=== PATIENT | male | born 1985 | race Two or more races ===

== ENCOUNTER 2018-05-15 09:32 | Emergency (ER) | payer OTHER ==
[~2018-05-15] VITALS: Ht 172.7 cm; Wt 104.3 kg
== END 2018-05-15 16:18 | disposition home or self-care (01) ==
LOC: ER 09:32 → EDBD 09:32 → ER 09:48
DX: N20.1 Calculus of ureter (principal); N20.0 Calculus of kidney

== ENCOUNTER 2020-02-22 01:44 | Emergency (ER) | payer OTHER ==
[~2020-02-22] VITALS: Ht 175.3 cm; Wt 108.9 kg
[2020-02-22] MEDS ORDERED: KETO10TA2 PO (06:51)
[2020-02-22] MEDS ORDERED: TAMS0.4C PO (06:51)
== END 2020-02-22 07:53 | disposition home or self-care (01) ==
LOC: ER 01:44
DX: N20.1 Calculus of ureter (principal); R10.31 Right lower quadrant pain

== ENCOUNTER 2020-05-03 00:11 | Emergency (ER) | payer OTHER ==
[~2020-05-03] VITALS: Ht 170.2 cm; Wt 111.1 kg
[~2020-05-03 00:11] MED LIST: KETO10TA2 PO; TAMS0.4C PO
[2020-05-30] MEDS ORDERED: TAMS0.4C PO (16:23)
[2020-05-30] MEDS ORDERED: KETOROLAC TROME10 MG PO (16:29)
== END 2020-05-03 08:28 | disposition home or self-care (01) ==
LOC: ER 00:11
DX: N20.1 Calculus of ureter (principal); R10.31 Right lower quadrant pain

== ENCOUNTER → 2020-05-23 | Outpatient (CLI) | payer OTHER ==
[~2020-05-23] MED LIST changes: +KETOROLAC TROME10 MG PO
== END | disposition home or self-care (01) ==
LOC: RAD 12:05
PROVIDERS: ATTEND Urology
DX: N20.1 Calculus of ureter (principal)

== ENCOUNTER 2020-06-01 05:55 | Day surgery (SDC) | payer OTHER | END 2020-06-01 13:05 | disposition home or self-care (01) | LOC: CIR.AMB 05:55 | PROVIDERS: ATTEND Urology | DX: N20.1 Calculus of ureter (principal) ==

== ENCOUNTER 2020-06-09 11:47 | Outpatient (CLI) | payer OTHER | END 2020-06-09 11:48 | disposition home or self-care (01) | LOC: RAD 11:47 | PROVIDERS: ATTEND Urology | DX: N20.1 Calculus of ureter (principal) ==

== ENCOUNTER 2020-06-27 06:35 | Day surgery (SDC) | payer OTHER | END 2020-06-27 14:33 | disposition home or self-care (01) | LOC: CIR.AMB 06:35 | PROVIDERS: ATTEND Urology | DX: N20.0 Calculus of kidney (principal); Z20.828 Contact with and (suspected) exposure to other viral communicable diseases ==

== ENCOUNTER 2020-07-01 08:21 | Outpatient (CLI) | payer OTHER | END 2020-07-01 08:26 | disposition home or self-care (01) | LOC: RAD 08:21 | PROVIDERS: ATTEND Urology | DX: N20.0 Calculus of kidney (principal) ==

== ENCOUNTER 2020-07-20 10:14 | Outpatient (CLI) | payer OTHER | END 2020-07-20 15:00 | disposition home or self-care (01) | LOC: LAB 10:14 | PROVIDERS: ATTEND Urology | DX: N20.0 Calculus of kidney (principal); N30.00 Acute cystitis without hematuria ==

== ENCOUNTER 2020-11-07 13:33 | Outpatient (CLI) | payer OTHER | END 2020-11-07 13:48 | disposition home or self-care (01) | LOC: LAB 13:33 | PROVIDERS: ATTEND Urology | DX: N20.1 Calculus of ureter (principal) ==

== ENCOUNTER 2020-11-11 09:43 | Outpatient (CLI) | payer OTHER | END 2020-11-11 09:48 | disposition home or self-care (01) | LOC: LAB 09:43 | PROVIDERS: ATTEND Urology | DX: N20.1 Calculus of ureter (principal) ==

== ENCOUNTER 2023-04-25 13:21 | Emergency (ER) | payer OTHER ==
[~2023-04-25] VITALS: Ht 175.3 cm; Wt 113.4 kg
[2023-04-25] MEDS ORDERED: TAMS0.4C PO (19:14)
[2023-04-25] MEDS ORDERED: CIPRO500 MG PO (19:14)
[2023-04-25] MEDS ORDERED: KETO10TA2 PO (19:14)
== END 2023-04-25 19:44 | disposition home or self-care (01) ==
LOC: ER 13:21
DX: N20.1 Calculus of ureter (principal); Z87.442 Personal history of urinary calculi

== ENCOUNTER 2023-09-11 09:17 | Outpatient (CLI) | payer OTHER ==
[~2023-09-11 09:17] MED LIST changes: +CIPRO500 MG PO
== END 2023-09-11 09:34 | disposition home or self-care (01) ==
LOC: RAD 09:17
PROVIDERS: ATTEND Urology
DX: N20.0 Calculus of kidney (principal)